=== PATIENT | female | born 1940 | race Caucasian/White ===

== ENCOUNTER 2020-07-22 16:48 | Inpatient (IN) | payer MEDICARE ==
[~2020-07-22] VITALS: Ht 152.4 cm; Wt 48.1 kg
--- NOTE | 2020-07-22 16:59 | NUR ---
Pt brought in via rescue for Psych eval. MD Castillo at bedside assessing pt. VSS stable
[2020-07-22] MEDS ORDERED: ESCI10TA PO (17:09)
[2020-07-22] MEDS ORDERED: QUET25TA PO (17:09)
[2020-07-22 20:00] VITALS: BP 187/80
[2020-07-22] MEDS ORDERED: TEMAZEPAM 7.5 MG CAPSULE PO PRN ×2 (20:00→23:15)
[2020-07-22] MEDS ORDERED: MAG HYDROX/AL HYDROX/SIMETH 30 ML LIQUID UDC PO PRN ×2 (20:00→23:15)
[2020-07-22] MEDS ORDERED: MAGNESIUM HYDROXIDE 30 ML LIQUID UDC PO PRN ×2 (20:00→23:15)
[2020-07-22] MEDS ORDERED: BLOOD SUGAR DIAGNOSTIC 1 EACH STRIP VI ONE ×2 (20:00→21:00)
[2020-07-22] MEDS ORDERED: ACETAMINOPHEN 325 MG TABLET PO PRN ×2 (20:00→23:15)
[2020-07-22] MEDS ORDERED: LORAZEPAM 0.5 MG TABLET PO PRN (20:00)
[2020-07-22 22:45] VITALS: BP 130/72
[2020-07-22] MEDS ORDERED: LORAZEPAM 1 MG TABLET PO PRN (23:15)
--- NOTE | 2020-07-22 23:58 | NUR ---
PATIENT UP IN CHAIR. PATIENT IS ALERT/ORIENTED TO NAME. PATIEN IS CONFUSED, FLAT AFFECT ANXIOUS, GUARDED, SUSPICIOUS, AND UNCOOPERATIVE. PATIENT WAS LIMITED WITH CONVERSATION. PATIENT DENIES SI AND DENIES HAVING A PLAN.PATIENT REFUSED TO SIGN ADMISSION FORMS. PATIENT WAS CHANGED INTO HOSPITAL GOWN. PATIENT WAS ORIENTED TO ROOM. SAFE ENVIRONMENT PROVIDE, FREQUENT ROUNDING, AND CLUTTER FREE ENVIRONMENT. BED IN LOWEST POSITION, BED LOCKED, AND BED ALARM ON WHILE IN BED. Q15 MIN ROUNDING. PATIENT REFUSED INFLUENZA VACCINE AND PNEUMOCOCCAL. NO AGGRESSIVE OR COMBATIVE BEHAVIOR NOTED. Addendum: 07/23/20 at 0651 by ANUP CAMPA RN skin left lower leg with laceration and sutures, left and right wrist with laceration pictures rendered. Patient denies SI and denies a plan. Patient received admission packet with advisement.
[2020-07-23 07:30] VITALS: BP 159/80
--- NOTE | 2020-07-23 10:58 | NUR ---
DPOA Contact: OSMEL called the pts DPOA, Gaby Gaffney ([phone]), and left a voicemail stating that the SW would like to speak to her regarding the pts treatment plan.
--- NOTE | 2020-07-23 10:59 | NUR ---
Family Contact: Pts DPOA, Gaby Gaffney ([phone]), called the SW and stated that the pts son, Lee ([phone]), was also on the line. DPOA stated that she only has the ability to make decisions regarding the pts finances but that the pt signed an Advanced Directive and listed the pts son on there. ENZO asked that the SW mainly contact the pts son. OSMEL then went on to discuss the pts discharge plan and was informed that the pt currently resides at [facility] and that the pt will be welcomed back. OSMEL stated that she would also call them to confirm the pt can return. OSMEL stated that she would the pts son updated regarding pts treatment. Addendum: 07/24/20 at 1117 by OSMEL BATRES Pts son is named Live
--- NOTE | 2020-07-23 11:07 | NUR ---
Facility Contact: OSMEL called [facility] ([phone]) and spoke to the front edger who stated that the Animal Care Supervisor, Lee Goodrich, was not at work today and the best alternative person to speak to is Michelle but she was in a meeting. OSMEL stated that she will call back at a later time.
--- NOTE | 2020-07-23 11:12 | NUR ---
called and spoke with Frank hodgson [facility] regarding patients home medication, will follow up for the information
--- NOTE | 2020-07-23 12:29 | NUR ---
Facility Contact: Michelle from [facility] ([phone]) called the SW back and stated that the pt can return to their facility once the SW can send an MD note clearing the pt of having suicidal ideation and not being a harm to herself. SW stated that she would send an MD progress note closer to the pts discharge date.
--- NOTE | 2020-07-23 12:29 | NUR ---
Initial Discharge Plan: Pt currently resides at [facility] located at [address] [place] [address]; ([phone]). Per pt, she would like to return to her home but per pts DPOA, Gaby ([phone]), and pts son, Lee ([phone]), who is listed on the Advanced Directive, pt will return to the Assisted Living and Memory Care. SW will work with the pt, pts DPOA, pts son, and pts MD regarding appropriate discharge planning. SW will form a safe and proper discharge.
--- NOTE | 2020-07-23 12:52 | NUR ---
Firearms Report: Negative Cleaner completed and submitted a [employer] firearms report for 5150 danger to self certification. A copy of report has been placed in patient chart.
[2020-07-23] MEDS ORDERED: ATEN50TA PO (13:11)
[2020-07-23] MEDS ORDERED: VIT1CAPS9 PO (13:11)
[2020-07-23] MEDS ORDERED: TIMO1DRO OP (13:11)
[2020-07-23] MEDS ORDERED: ASPI81TA31 PO (13:11)
[2020-07-23] MEDS ORDERED: LOSA100T31 PO (13:11)
[2020-07-23] MEDS ORDERED: MULT-594 PO (13:11)
[2020-07-23] MEDS ORDERED: ATOR10TA PO (13:11)
[2020-07-23] MEDS ORDERED: DONE10TA44 PO (13:11)
[2020-07-23] MEDS ORDERED: POTA-10 PO (13:11)
[2020-07-23] MEDS ORDERED: EZET10TA15 PO (13:11)
[2020-07-23] MEDS ORDERED: VITA-85A (13:11)
[2020-07-23] MEDS ORDERED: TIMO5DRO35 OP (13:11)
[2020-07-23] MEDS ORDERED: BIMA2.5D5 EACHEYE (13:11)
--- NOTE | 2020-07-23 14:00 | NUR ---
received patients home medication list record from Danielle Guerra, updated patient record, aware
[2020-07-23 16:00] VITALS: BP 109/92
[2020-07-23 20:00] VITALS: BP 167/73
[2020-07-23] MEDS: MIRTAZAPINE 15 MG TABLET PO SCH (20:18)
[2020-07-23 21:04] VITALS: BP 148/54
[2020-07-24 07:30] VITALS: BP 166/96
--- NOTE | 2020-07-24 07:40 | NUR ---
received patient in her room, patient AOx2-3, patient quiet in her room, encourage to stay in the dining room for breakfast, patient compliant with medications, on Suicidal precaution, patient minimizes her symptoms , patient monitored [id number], no sign of any distress at this time
--- NOTE | 2020-07-24 11:17 | NUR ---
Family Contact: SW called the pts son, Live ([phone]), and left a voicemail providing him with updates regarding the pts treatment.
--- NOTE | 2020-07-24 11:27 | NUR ---
Family Contact: Pts DPOA, Gaby Gaffney ([phone]) and pts son, Live ([phone]), called the SW in return to the voicemail that was left and asked for more detail. SW went over the pts current medications and the pts current behaviors. SW also informed them that the pt meets with a psychiatrist daily.
[2020-07-24] MEDS: LOSARTAN POTASSIUM 50 MG TABLET PO SCH (13:18)
[2020-07-24] MEDS: ASPIRIN 81 MG TAB.CHEW PO SCH (13:18)
[2020-07-24] MEDS: EZETIMIBE 10 MG TABLET PO SCH (13:19)
[2020-07-24] MEDS: ATENOLOL 50 MG TABLET PO SCH (13:20)
[2020-07-24 16:00] VITALS: BP 146/66
[2020-07-24] MEDS: LATANOPROST OPHT DROP 2.5 ML BOTTLE EACHEYE SCH (17:04)
[2020-07-24] MEDS: ATORVASTATIN 10 MG TABLET PO SCH (17:05)
--- NOTE | 2020-07-24 17:46 | NUR ---
patient remain isolative and withdrawn throughout the day, patient compliant with medications , easily irritable, patient poor appetite, patient minimizes her symptoms, monitored q15 minutes for safety, denies SI and HI, denies AV/HV assisted with ADLS , no sign of distress
[2020-07-24 20:00] VITALS: BP 145/64
[2020-07-24] MEDS: MIRTAZAPINE 15 MG TABLET PO SCH (20:15)
--- NOTE | 2020-07-25 05:55 | NUR ---
GPS: Remain calm and cooperative with care.no agitation noted.slept 8.45 hrs through the night. resting in bed comfortably.
--- NOTE | 2020-07-25 07:30 | NUR ---
Received patient AOx3-4, patient calm inher room, compliant with medication, this morning patient refused VS and lab drawn, patient Denies SI and HI, Minimizes her symptoms, patient isolative , and withdrawn, on monitoring for safety
[2020-07-25 08:30] VITALS: BP_SYST 141; BP_SYST 147; BP_DIAS 50; BP_DIAS 54
[2020-07-25] MEDS: ASPIRIN 81 MG TAB.CHEW PO SCH (08:40)
[2020-07-25] MEDS: POTASSIUM CHLORIDE 10 MEQ TAB.PRT.SR PO SCH (08:41)
[2020-07-25] MEDS: MULTIVITAMINS,THERAPEUTIC TABLET PO SCH (08:41)
[2020-07-25] MEDS: LOSARTAN POTASSIUM 50 MG TABLET PO SCH (08:49)
[2020-07-25] MEDS: ATENOLOL 50 MG TABLET PO SCH (09:00)
[2020-07-25] MEDS: EZETIMIBE 10 MG TABLET PO SCH (09:00)
[2020-07-25 16:13] VITALS: BP 147/54
[2020-07-25] MEDS: ATORVASTATIN 10 MG TABLET PO SCH (17:04)
[2020-07-25] MEDS: LATANOPROST OPHT DROP 2.5 ML BOTTLE EACHEYE SCH (17:04)
--- NOTE | 2020-07-25 18:00 | NUR ---
patient remains to be quiet, patient seen walking hallway and sometimes got lost track of time , patient verbalizes "when is breakfast ?" , reorient patient to time, and explained that she already had breakfast and lunch and at this time we are waiting for dinner, patient reoriented to time and place, patient easily irritable and needed education and after explaining the situation deven address her concern patient calm down , moniotred [id number] for safety , no sign of any distress at this time
[2020-07-25 20:42] VITALS: BP 138/56
[2020-07-25] MEDS: MIRTAZAPINE 15 MG TABLET PO SCH (20:45)
--- NOTE | 2020-07-26 06:09 | NUR ---
GPS:Remain calm and cooperative irritable, monitored q15 minutes for safety, Denies SI and HI, assisted with ADLS , no sign of distress . Resting in bed comfortably. slept 7.45 hrs through the night.
[2020-07-26 07:30] VITALS: BP 161/63
[2020-07-26] MEDS: ASPIRIN 81 MG TAB.CHEW PO SCH (08:14)
[2020-07-26] MEDS: MULTIVITAMINS,THERAPEUTIC TABLET PO SCH (08:14)
[2020-07-26] MEDS: LOSARTAN POTASSIUM 50 MG TABLET PO SCH (08:14)
[2020-07-26] MEDS: POTASSIUM CHLORIDE 10 MEQ TAB.PRT.SR PO SCH (08:14)
[2020-07-26] MEDS: EZETIMIBE 10 MG TABLET PO SCH (08:17)
[2020-07-26] MEDS: ATENOLOL 50 MG TABLET PO SCH (08:47)
[2020-07-26] MEDS ORDERED: CLONIDINE HCL 0.1 MG TABLET PO PRN (11:00)
[2020-07-26 15:44] VITALS: BP 121/50
[2020-07-26] MEDS: ATORVASTATIN 10 MG TABLET PO SCH (17:06)
[2020-07-26] MEDS: LATANOPROST OPHT DROP 2.5 ML BOTTLE EACHEYE SCH (17:06)
[2020-07-26 20:00] VITALS: BP 145/62
[2020-07-26] MEDS: MIRTAZAPINE 15 MG TABLET PO SCH (20:14)
[2020-07-27 07:56] VITALS: BP 143/71
[2020-07-27] MEDS: ATENOLOL 50 MG TABLET PO SCH (08:00)
[2020-07-27] MEDS: ASPIRIN 81 MG TAB.CHEW PO SCH (08:00)
[2020-07-27] MEDS: POTASSIUM CHLORIDE 10 MEQ TAB.PRT.SR PO SCH (08:00)
[2020-07-27] MEDS: LOSARTAN POTASSIUM 50 MG TABLET PO SCH (08:00)
[2020-07-27] MEDS: MULTIVITAMINS,THERAPEUTIC TABLET PO SCH (08:00)
[2020-07-27] MEDS: EZETIMIBE 10 MG TABLET PO SCH (08:01)
[2020-07-27 15:16] VITALS: BP 112/43
[2020-07-27] MEDS: LATANOPROST OPHT DROP 2.5 ML BOTTLE EACHEYE SCH (17:00)
[2020-07-27] MEDS: ATORVASTATIN 10 MG TABLET PO SCH (17:00)
[2020-07-27] MEDS: MIRTAZAPINE 15 MG TABLET PO SCH (20:31)
--- NOTE | 2020-07-27 22:00 | NUR ---
PATIENT REFUSED REMERON 15MG QHS. MULTIPLE REDIRECTION GIVEN; HOWEVER, INEFFECTIVE. SHE WAS EXPLAINED THE IMPORTANCE OF MEDICATION COMPLIANT AND THE CONSEQUENCES OF NOT TALKING MEDICATION/ WILL CONTINUE TO MONITOR.
--- NOTE | 2020-07-28 07:00 | NUR ---
PATIENT SLEPT FOR APPROX 8.30HRS THROUGH THE NIGHT. SHE REFUSED BLOOD DRAWN THIS MORNING, LACERATION TO BOTH WRISTS AND LEFT LOWER LEG NOTED DRY AND INTACT. WILL CONTINUE TO MONITOR.
[2020-07-28 07:30] VITALS: BP 128/68
[2020-07-28] MEDS: ASPIRIN 81 MG TAB.CHEW PO SCH (08:23)
[2020-07-28] MEDS: MULTIVITAMINS,THERAPEUTIC TABLET PO SCH (08:24)
[2020-07-28] MEDS: LOSARTAN POTASSIUM 50 MG TABLET PO SCH (08:24)
[2020-07-28] MEDS: EZETIMIBE 10 MG TABLET PO SCH (08:26)
[2020-07-28] MEDS: ATENOLOL 50 MG TABLET PO SCH (08:26)
[2020-07-28] MEDS: POTASSIUM CHLORIDE 10 MEQ TAB.PRT.SR PO SCH (08:32)
--- NOTE | 2020-07-28 09:00 | NUR ---
RECEIVED PATIENT IN ROOM AWAKE ALERT AND AWARE COMPLIANT WITH MEDICATIONS AND CARE LEFT LEG LACERATIONS WITH STITCHES INTACT NO DRAINAGE AT THIS TIME. PATIENT ENCOURAGED TO GO AND PARTICIPATE IN ACTIVITIES AND SHE EXPRESSED UNDERSTANDING.
--- NOTE | 2020-07-28 11:05 | NUR ---
WOUND CARE CONSULT: PT PRESENTS WITH DRY SCRATCHES, SCABS ON ARMS AND SUTURED LACERATION TO LEFT LOWER LEG, PRESENT ON ADMISSION. RECOMMEND DPM CONSULT. DR FERRO NOTIFIED OF CONSULT REQUEST. PT IS AMBULATORY AND CONTINENT. MD IN AGREEMENT WITH PLAN OF CARE.
--- NOTE | 2020-07-28 12:38 | NUR ---
Family Contact: Pts DPOA, Gaby Gaffney ([phone]) and pts son, Live ([phone]), called this social services coordinator to discuss treatment plan and current medications.
--- NOTE | 2020-07-28 14:33 | NUR ---
DR VASQUEZ HERE TO SEE PATIENT SEEN HER LEFT LEG WITH ORDER TO LEAVE OPEN TO AIR AND THAT SHE WILL BE BACK ABOUT MON OR MONDAY TO REEVALUATE THE STITCHES.
[2020-07-28 15:39] VITALS: BP 125/44
[2020-07-28] MEDS: LATANOPROST OPHT DROP 2.5 ML BOTTLE EACHEYE SCH (17:18)
[2020-07-28] MEDS: ATORVASTATIN 10 MG TABLET PO SCH (17:18)
[2020-07-28 20:00] VITALS: BP 133/63
[2020-07-28] MEDS: MIRTAZAPINE 15 MG TABLET PO SCH (20:05)
[2020-07-29 07:30] VITALS: BP 132/67
--- NOTE | 2020-07-29 08:14 | NUR ---
OSMEL Facility Contact: OSMEL received a call from CANDACE from [facility] ([phone]) requesting information regarding treatment and discharge plan. OSMEL called to inform and left a voicemail at this time.
[2020-07-29] MEDS: ASPIRIN 81 MG TAB.CHEW PO SCH (09:03)
[2020-07-29] MEDS: POTASSIUM CHLORIDE 10 MEQ TAB.PRT.SR PO SCH (09:06)
[2020-07-29] MEDS: LOSARTAN POTASSIUM 50 MG TABLET PO SCH (09:06)
[2020-07-29] MEDS: MULTIVITAMINS,THERAPEUTIC TABLET PO SCH (09:06)
[2020-07-29] MEDS: EZETIMIBE 10 MG TABLET PO SCH (09:09)
[2020-07-29] MEDS: ATENOLOL 50 MG TABLET PO SCH (09:26)
--- NOTE | 2020-07-29 10:52 | NUR ---
PC Hearing: PC hearing was held today and it was upheld for danger to self and gravely disabled.
--- NOTE | 2020-07-29 15:08 | NUR ---
Facility Contact: OSMEL coordinated a video conference with CANDACE and Michelle from [facility] ([phone]) to evaluate the patient before her discharge back to the facility. Addendum: 07/29/20 at 1528 by EMI BAJWA OSMEL also informed CANDACE of the patient's aftercare appointment with her doctor.
--- NOTE | 2020-07-29 15:09 | NUR ---
Family Contact: SW spoke with pts son, Live ([phone]) regarding discharge for tomorrow and Live is agreeable with the discharge and [employer] transportation.
--- NOTE | 2020-07-29 15:18 | NUR ---
OSMEL Coordination of Care: SW arranged [employer] transportation spoke with Mayank ([phone]) and it is arranged for the patient to be picked up at 1:30PM tomorrow. patient's son Live will be taking care of the payment.
[2020-07-29 16:04] VITALS: BP 125/62
[2020-07-29] MEDS: ATORVASTATIN 10 MG TABLET PO SCH (18:08)
[2020-07-29] MEDS: LATANOPROST OPHT DROP 2.5 ML BOTTLE EACHEYE SCH (18:08)
[2020-07-29 19:49] VITALS: BP 105/51
[2020-07-29] MEDS: MIRTAZAPINE 15 MG TABLET PO SCH (20:00)
--- NOTE | 2020-07-29 20:00 | NUR ---
LACERATION LEFT LOWER LEG WITH THREE SUTURES AND LACERATION ON BOTH WRISTS WERE REASSESSED. NO DRAINAGE, NO SWELLING, NO REDNESS NO S/S OF INFECTION NOTED AT THIS TIME. PATIENT DENIES PAIN OR DISCOMFORT. WILL REASSESSES BEFORE PATIENT'S DISCHARGED FOR THE NEED TO REMOVE SUTURE IN LEFT LOWER LEG. WILL CONTINUE TO MONITOR.
--- NOTE | 2020-07-30 04:06 | NUR ---
PATIENT CAME OUT OF HER ROOM AND APPROACHED THE NURSING STATION, SHE ASKED FOR THE TIME, THEN SHE STATED, "I DON'T KNOW WHERE MY ROOM IS BUT I WILL FIND IT". PT WAS HELPED BACK TO HER ROOM, SHE IS NOW BACK IN HER BED. WILL CONTINUE TO MONITOR.
--- NOTE | 2020-07-30 07:10 | NUR ---
patient slept for approx. 6.15hrs through the night. will continue to monitor.
--- NOTE | 2020-07-30 08:05 | NUR ---
DISCHARGE NOTE: [facility] located at [address] [place] [id number] ([phone]). Patient is provided [employer] transportation spoke with Mayank ([phone]) and it is arranged for the patient to be picked up at 1:30PM. Michelle and CANDACE from [facility] ([phone]) confirmed that the patient is welcome back. Patients ENZO Griffin ([phone]) and patients sonLive ([phone]) are both made aware and are agreeable with discharge plan. Patient is alert and oriented times 4 and is aware and agreeable with discharge plan. Patient presents with euthymic mood and congruent affect. Patient denies suicidal or homicidal ideation. Patient will be following up with her primary physician Dr. Wilks [address] [place] [address] [address] ([phone]) and has an appointment scheduled on 08/05/20 at 11AM via telemedicine. OSMEL spoke with Sheila and requested for physician to refer patient for an outpatient psychiatrist and will monitor the psychotropic medications.
[2020-07-30] MEDS: ASPIRIN 81 MG TAB.CHEW PO SCH (08:20)
[2020-07-30] MEDS: POTASSIUM CHLORIDE 10 MEQ TAB.PRT.SR PO SCH (08:20)
[2020-07-30] MEDS: LOSARTAN POTASSIUM 50 MG TABLET PO SCH (08:20)
[2020-07-30] MEDS: MULTIVITAMINS,THERAPEUTIC TABLET PO SCH (08:20)
[2020-07-30] MEDS: EZETIMIBE 10 MG TABLET PO SCH (08:22)
[2020-07-30] MEDS: ATENOLOL 50 MG TABLET PO SCH (08:23)
[2020-07-30 11:02] VITALS: BP 140/45
--- NOTE | 2020-07-30 15:05 | NUR ---
Patient is being picked up by staff from her Assisted Living, [place]. Pt is aware and willing to go. VS are stable. Discharge instructions are given. All belongings returned.
== END 2020-07-30 15:20 | DRG 881 ==
LOC: ER 16:48 → GPS 18:31
PROVIDERS: ADMIT Psychiatry & Neurology Psychiatry; ATTEND Nurse Practitioner Acute Care
DX: F32.9 Major depressive disorder, single episode, unspecified (principal); E78.5 Hyperlipidemia, unspecified; H40.9 Unspecified glaucoma; F29 Unspecified psychosis not due to a substance or known physiological condition; I10 Essential (primary) hypertension; S51.812D Laceration without foreign body of left forearm, subsequent encounter; S81.812D Laceration without foreign body, left lower leg, subsequent encounter; X78.9XXD Intentional self-harm by unspecified sharp object, subsequent encounter; M20.41 Other hammer toe(s) (acquired), right foot; M20.42 Other hammer toe(s) (acquired), left foot; Z20.822 Contact with and (suspected) exposure to COVID-19
CPT/HCPCS: 71045; A4663

== ENCOUNTER 2020-09-24 18:06 | Inpatient (IN) | payer MEDICARE, BC ==
[~2020-09-24] VITALS: Ht 152.4 cm; Wt 51.3 kg
[~2020-09-24 18:06] MED LIST: ASPI81TA31 PO; ATEN50TA PO; ATOR10TA PO; BIMA2.5D5 EACHEYE; EZET10TA15 PO; LOSA100T31 PO; MULT-594 PO; POTA-10 PO; TIMO1DRO OP; TIMO5DRO18 OP; VIT1CAPS9 PO; VITA-85A
--- NOTE | 2020-09-24 18:33 | NUR ---
Pt is medically cleared by DR Chandler, PET called, Negar RN will be here in 1 hour for psych eval.
[2020-09-24] MEDS ORDERED: ESCI10TA PO (18:41)
[2020-09-24] MEDS ORDERED: QUET25TA PO (18:41)
[2020-09-24] MEDS ORDERED: DONE10TA44 PO (18:41)
[2020-09-24] MEDS ORDERED: MIRT15TA7 PO (18:41)
--- NOTE | 2020-09-24 19:10 | NUR ---
ASSISSTED PT TO THE BATHROOM, UNSTEADY GAIT, FALL RISK, GUIDED THE PT BACK TO THE BED, COMFORT MEASURES PROVIDED.
--- NOTE | 2020-09-24 19:30 | NUR ---
pt came out of the bed, walking around in the room. assisstd pt back to bed.
--- NOTE | 2020-09-24 20:00 | NUR ---
TERE JORGE PLACED THE PT ON 5150 HOLD FOR GD/DTO.
--- NOTE | 2020-09-24 20:48 | NUR ---
JOSLYN AUSTIN TALKED TO DR. ROY REGARDING PT BP/HR. CLEARED FOR PSYCH ADMIT.
--- NOTE | 2020-09-24 21:51 | NUR ---
ER CALLED DR. ROY REGARDING PT HR/BP, PT WILL ADMITTED TO TELE INSTEAD OF MHU.
[2020-09-24 21:56] LABS: BASOPHILS % (AUTO) 1.1 % (0.0-2.0); EOSINOPHILS % (AUTO) 7.4 % (0.0-7.0); HEMATOCRIT 40.6 % (31.2-41.9); HEMOGLOBIN 13.4 g/dL (10.9-14.3); LYMPHOCYTES % (AUTO) 28.5 % (20.5-51.5); MEAN CORPUSCULAR HEMOGLOBIN 31.6 uug (24.7-32.8); MEAN CORPUSCULAR HGB CONC 33 g/dL (32.3-35.6); MEAN CORPUSCULAR VOLUME 95.9 fL (75.5-95.3); MONOCYTES % (AUTO) 12.1 % (0.0-11.0); NEUTROPHILS % (AUTO) 50.9 % (38.5-71.5); PLATELET COUNT (AUTO) 194 K/uL (179-408); RED BLOOD CELL COUNT(AUTO) 4.24 MIL/uL (3.63-4.92); WHITE BLOOD COUNT (AUTO) 6.8 K/uL (3.8-11.8)
[2020-09-24 21:57] LABS: BASOPHILS # (AUTO) 0.1 K/uL (0.0-8.0); EOSINOPHILS # (AUTO) 0.5 K/uL (0.0-0.7); LYMPHOCYTES # (AUTO) 1.9 K/uL (20.0-40.0); MONOCYTES # (AUTO) 0.8 K/uL (2.0-10.0); NEUTROPHILS # (AUTO) 3.5 K/uL (1.8-8.9)
--- NOTE | 2020-09-24 22:00 | NUR ---
PT RESTING, NO SIGN OF DISTRESS AT THIS TIME.
[2020-09-24 22:10] LABS: BILIRUBIN,TOTAL 0.6 mg/dL (0.2-1.0); TOTAL PROTEIN, SERUM 7.4 g/dL (6.4-8.2)
[2020-09-24] MEDS ORDERED: hydrALAZINE HCL 25 MG TABLET PO SCH (22:15)
[2020-09-24] MEDS: AMLODIPINE 5 MG TABLET PO SCH (22:23)
[2020-09-24] MEDS ORDERED: AMLODIPINE 5 MG TABLET ONE (22:25)
[2020-09-24] MEDS ORDERED: hydrALAZINE HCL 25 MG TABLET ONE (22:25)
--- NOTE | 2020-09-24 22:40 | NUR ---
TRANSFERED PT TO [facility] IN[facility].
--- NOTE | 2020-09-24 22:45 | NUR ---
Admitted an 80 y/o female to telemetry with diagnosis of HTN, bradycardia and psychosis. Pt transferred to bed, admission care rendered, safety measures initiated, call light within reach. Pt is sinus bradycardia on tele at 49/min, shows no s/s of respiratory distress, denies any pain, denies suicidal ideation. Belongings listed on belongings form. Pt on 5150 hold with 1:1 sitter at bedside. IV access on L AC intact and patent. will continue to monitor.
[2020-09-24 22:55] VITALS: BP 164/64
[2020-09-24 23:20] VITALS: BP 134/56
[2020-09-24] MEDS ORDERED: ONDANSETRON 4 MG/2 ML VIAL IV PRN (23:30)
[2020-09-24] MEDS ORDERED: hydrALAZINE HCL 25 MG TABLET PO PRN (23:30)
[2020-09-24] MEDS ORDERED: ENALAPRILAT DIHYDRATE 1.25 MG/1 ML VIAL IV PRN (23:30)
[2020-09-24] MEDS ORDERED: ACETAMINOPHEN 325 MG TABLET PO PRN (23:30)
[2020-09-24] MEDS: MIRTAZAPINE 15 MG TABLET PO SCH (23:30)
[2020-09-24] MEDS ORDERED: HYDROCODONE/APAP 5-325MG TABLET PO PRN (23:30)
[2020-09-24] MEDS ORDERED: LORAZEPAM 2 MG/1 ML VIAL IV PRN (23:30)
[2020-09-25] VITALS: BP 114/52
[2020-09-25] MEDS: ENOXAPARIN SODIUM 40 MG/0.4 ML DISP.SYRIN SQ SCH ×2 (00:28→20:25)
[2020-09-25 01:41] VITALS: BP 173/77
[2020-09-25 04:00] VITALS: BP 133/54
--- NOTE | 2020-09-25 05:33 | NUR ---
Pt laying in bed, calm and verbally responsive, no s/s of distress, denies pain, sinus bradycardia on tele at 54/min. IV access on L AC intact and patent. Sitter at bedside. Safety measures in place. All needs attended.
[2020-09-25] MEDS: PANTOPRAZOLE SODIUM 40 MG TABLET.DR PO SCH (06:24)
--- NOTE | 2020-09-25 06:24 | NUR ---
Assisted pt to the bathroom, she was calm and conversant at first. When putting her back to bed, she began withdrawing her hands, voice raising and refusing care. Reorientation done, redirected her attention but still refuses care. Pt also refused her protonix medication. will endorse to receiving nurse.
[2020-09-25 06:35] LABS: BASOPHILS # (AUTO) 0.1 K/uL (0.0-8.0); BASOPHILS % (AUTO) 0.9 % (0.0-2.0); EOSINOPHILS # (AUTO) 0.2 K/uL (0.0-0.7); HEMATOCRIT 39.1 % (31.2-41.9); HEMOGLOBIN 12.9 g/dL (10.9-14.3); LYMPHOCYTES # (AUTO) 1.2 K/uL (20.0-40.0); LYMPHOCYTES % (AUTO) 17.8 % (20.5-51.5); MEAN CORPUSCULAR HEMOGLOBIN 31.7 uug (24.7-32.8); MEAN CORPUSCULAR HGB CONC 33 g/dL (32.3-35.6); MEAN CORPUSCULAR VOLUME 95.8 fL (75.5-95.3); MONOCYTES # (AUTO) 0.5 K/uL (2.0-10.0); MONOCYTES % (AUTO) 7.9 % (0.0-11.0); NEUTROPHILS # (AUTO) 4.9 K/uL (1.8-8.9); NEUTROPHILS % (AUTO) 70.4 % (38.5-71.5); PLATELET COUNT (AUTO) 182 K/uL (179-408); RED BLOOD CELL COUNT(AUTO) 4.08 MIL/uL (3.63-4.92); WHITE BLOOD COUNT (AUTO) 6.9 K/uL (3.8-11.8)
[2020-09-25 06:58] LABS: THYROID STIMULATING HORMONE 1.453 mIU/mL (0.358-3.740)
[2020-09-25 07:15] LABS: BILIRUBIN,TOTAL 0.9 mg/dL (0.2-1.0); CREATININE 0.9 mg/dL (0.6-1.3); PHOSPHOROUS 3.6 mg/dL (2.5-4.9); TOTAL PROTEIN, SERUM 6.9 g/dL (6.4-8.2)
[2020-09-25 07:37] VITALS: BP 143/66
[2020-09-25] MEDS: QUETIAPINE FUMARATE 25 MG TABLET PO SCH (08:21)
[2020-09-25] MEDS: AMLODIPINE 5 MG TABLET PO SCH ×3 (08:21→20:27)
[2020-09-25] MEDS: MULTIVITAMINS,THERAPEUTIC TABLET PO SCH (08:21)
[2020-09-25] MEDS: LOSARTAN POTASSIUM 50 MG TABLET PO SCH (08:22)
--- NOTE | 2020-09-25 08:32 | NUR ---
RECEIVED PATIENT, PLEASANT AT FIRST. MID-CONVERSATION, PATIENT BECAME VERBALLY AGGRESSIVE, STATING " WHAT DO YOU WANT? JUST LEAVE ME BE." REFUSED MEDICATION AT FIRST, BUT DECIDED TO TAKE THEM WHEN OFFERED AGAIN. 1:1 SITTER AT BEDSIDE FOR SAFETY. SAFETY PRECAUTIONS IN PLACE. WILL CONTINUE TO MONITOR. Addendum: 09/25/20 at 0922 by JAYDEN DUMONT RN DROPPED THREE PILLS FROM HER MORNING MEDS ON THE FLOOR, STATING "WHAT ARE THESE? I DON'T NEED THEM." ASKED PATIENT IF SHE STILL WANTS TO TAKE THEM IF I TAKE REPLACEMENT MEDICATIONS FROM THE SUPPLY ROOM, STATES " WELL, OF COURSE. WHY ARE YOU ASKING?" SAFETY PRECAUTIONS IN PLACE. WILL CONTINUE TO MONITOR.
[2020-09-25] MEDS ORDERED: DONEPEZIL 10 MG TABLET PO SCH (09:00)
[2020-09-25] MEDS ORDERED: ESCITALOPRAM OXALATE 10 MG TABLET PO SCH (09:00)
--- NOTE | 2020-09-25 09:22 | NUR ---
PATIENT PULLED HER IV AFTER PT EVAL. NO S/S OF BLEEDING AT THIS TIME.
[2020-09-25] MEDS: TIMOLOL MALEATE 0.5% OPHT DROP 5 ML BOTTLE OP SCH (15:30)
[2020-09-25 16:35] VITALS: BP 136/66
[2020-09-25 19:27] VITALS: BP 107/51
[2020-09-25] MEDS: RIVASTIGMINE TARTRATE 1.5 MG CAPSULE PO SCH (20:15)
[2020-09-25] MEDS: ATORVASTATIN 10 MG TABLET PO SCH (20:15)
[2020-09-25] MEDS: DIVALPROEX 250 MG TABLET.DR PO SCH (20:15)
[2020-09-25] MEDS: risperiDONE 0.5 MG TABLET PO SCH (20:15)
[2020-09-25] MEDS: MIRTAZAPINE 15 MG TABLET PO SCH (20:16)
--- NOTE | 2020-09-25 20:18 | NUR ---
Patient in bed awake calm and pleasant.Interacts when engaged. No s/s of distress noted.Denies pain.Compliant with medications.1:1 sitter at bedside for safety.Will continue to monitor.
[2020-09-25] MEDS: LATANOPROST OPHT DROP 2.5 ML BOTTLE EACHEYE SCH (20:26)
[2020-09-26 00:30] VITALS: BP 115/55
[2020-09-26 04:36] VITALS: BP_SYST 144; BP_SYST 152; BP_DIAS 60; BP_DIAS 70
[2020-09-26] MEDS: PANTOPRAZOLE SODIUM 40 MG TABLET.DR PO SCH (06:14)
--- NOTE | 2020-09-26 06:29 | NUR ---
Patient slept intermittently through out the night.No acute distress noted .1:1 sitter remain at bedside.No behavioral issues.Patient calm .Refused protonix med this A.M .Explained risk and benefits 3x .PAtient still refused.Will endorse to oncoming shift.
[2020-09-26 07:09] VITALS: BP 132/61
[2020-09-26 07:13] LABS: BASOPHILS # (AUTO) 0.1 K/uL (0.0-8.0); BASOPHILS % (AUTO) 0.8 % (0.0-2.0); EOSINOPHILS # (AUTO) 0.5 K/uL (0.0-0.7); EOSINOPHILS % (AUTO) 7.4 % (0.0-7.0); HEMATOCRIT 35.9 % (31.2-41.9); LYMPHOCYTES # (AUTO) 2.4 K/uL (20.0-40.0); LYMPHOCYTES % (AUTO) 35.9 % (20.5-51.5); MEAN CORPUSCULAR HEMOGLOBIN 31.9 uug (24.7-32.8); MEAN CORPUSCULAR HGB CONC 34 g/dL (32.3-35.6); MEAN CORPUSCULAR VOLUME 95.2 fL (75.5-95.3); MONOCYTES # (AUTO) 0.9 K/uL (2.0-10.0); MONOCYTES % (AUTO) 13.2 % (0.0-11.0); NEUTROPHILS # (AUTO) 2.8 K/uL (1.8-8.9); NEUTROPHILS % (AUTO) 42.7 % (38.5-71.5); PLATELET COUNT (AUTO) 184 K/uL (179-408); RED BLOOD CELL COUNT(AUTO) 3.77 MIL/uL (3.63-4.92); WHITE BLOOD COUNT (AUTO) 6.6 K/uL (3.8-11.8)
[2020-09-26 07:28] LABS: CARBON DIOXIDE 28 mmol/L (21-32); CHLORIDE 103 mmol/L (98-107); CREATININE 1.4 mg/dL (0.6-1.3); GLUCOSE 85 mg/dL (74-106); MAGNESIUM 2.1 mg/dL (1.8-2.4); POTASSIUM 4.1 mmol/L (3.5-5.1); UREA NITROGEN, BLOOD 29 mg/dL (7-18)
[2020-09-26] MEDS: TIMOLOL MALEATE 0.5% OPHT DROP 5 ML BOTTLE OP SCH (08:23)
[2020-09-26] MEDS: AMLODIPINE 5 MG TABLET PO SCH ×2 (08:23→20:40)
[2020-09-26] MEDS: DIVALPROEX 250 MG TABLET.DR PO SCH ×2 (08:23→20:39)
[2020-09-26] MEDS: RIVASTIGMINE TARTRATE 1.5 MG CAPSULE PO SCH ×2 (08:23→20:39)
[2020-09-26] MEDS: risperiDONE 0.5 MG TABLET PO SCH ×2 (08:23→20:39)
[2020-09-26] MEDS: QUETIAPINE FUMARATE 25 MG TABLET PO SCH (08:24)
[2020-09-26] MEDS: LOSARTAN POTASSIUM 50 MG TABLET PO SCH (08:24)
[2020-09-26] MEDS: MULTIVITAMINS,THERAPEUTIC TABLET PO SCH (08:24)
[2020-09-26] MEDS ORDERED: TIMOLOL MALEATE XE 0.5% OPHT 5 ML BOTTLE OP SCH (08:55)
--- NOTE | 2020-09-26 09:03 | NUR ---
DAILY MEDICATIONS GIVEN. TIMILOL EYE DROPS GIVEN WITH PREVIOUS ORDER THAT WAS DISCONTINUED. NON-ADMIN TO PREVENT DUPLICATE ADMINISTRATION.
[2020-09-26] MEDS ORDERED: IV 1/2NS 1000 ML 1,000 ML IV ONE (09:30)
--- NOTE | 2020-09-26 12:39 | NUR ---
RESTARTED IV ON LEFT HAND 22G - FLUSHING AND PATENT. IV FLUIDS INFUSING ORDERED. 1:1 SITTER AT BEDSIDE. SAFETY PRECAUTIONS IN PLACE. WILL CONTINUE TO MONITOR.
--- NOTE | 2020-09-26 14:30 | NUR ---
PATIENT PULLED IV ON RIGHT HAND. PRESSURE APPLIED TO AREA. NO S/S OF EXCESSIVE BLEEDING. IV RESTARTED ON RIGHT FOREARM 22G - FLUSHED AND PATENT. 1:1 SITTER AT BEDSIDE. NOTIFIED TO KEEP A CLOSE EYE ON PATIENT. SAFETY PRECAUTIONS IN PLACE. WILL CONTINUE TO MONITOR.
[2020-09-26 15:40] LABS: *BILIRUBIN,URIN NEGATIVE (NEGATIVE); *BLOOD, URINE NEGATIVE (NEGATIVE); *CLARITY,URINE CLEAR (CLEAR); *COLOR,URINE YELLOW (YELLOW); *KETONES,URINE NEGATIVE (NEGATIVE); *UROBILINOGEN,URINE 0.2 E.U./dl (NORMAL); LEUKOCYTE ESTERASE ,URINE NEGATIVE (NEGATIVE); NITRITE, URINE NEGATIVE (NEGATIVE); PH,URINE 5.5 (5.0-8.0); UGLUCOSE NEGATIVE (NEGATIVE)
[2020-09-26 15:43] LABS: *CREATININE,URINE 97.2 mg/dL (30-125); *URINE TOTAL PROTEIN RANDOM 8.6 mg/dL (<150/24HR)
[2020-09-26 16:52] LABS: LYMPHOCYTES % (MANUAL) 32 % (20-40); MONOCYTES % (MANUAL) 7 % (2-10); NEUTROPHILS % (MANUAL) 50 % (42-75)
[2020-09-26 16:53] LABS: EOSINOPHILS % (MANUAL) 11 % (0-8)
[2020-09-26 16:59] VITALS: BP 129/60
[2020-09-26 20:28] VITALS: BP 137/57
[2020-09-26] MEDS: LATANOPROST OPHT DROP 2.5 ML BOTTLE EACHEYE SCH (20:39)
[2020-09-26] MEDS: MIRTAZAPINE 15 MG TABLET PO SCH (20:39)
[2020-09-26] MEDS: ATORVASTATIN 10 MG TABLET PO SCH (20:40)
[2020-09-26] MEDS ORDERED: ENOXAPARIN SODIUM 30 MG/0.3 ML DISP.SYRIN SUBCUT SCH (21:00)
[2020-09-27 00:45] VITALS: BP 128/53
[2020-09-27 04:22] VITALS: BP 137/57
--- NOTE | 2020-09-27 05:22 | NUR ---
PATIENT ASLEEP IN BED. SITTER AT BEDSIDE. SLEPT WELL THROUGHOUT THE NIGHT. ON TELE SR/SB. BED ALARM ON. CALL LIGHT IN REACH. ALL NEEDS ATTENDED. WILL CONTINUE TO MONITOR AND ASSESS.
[2020-09-27] MEDS: PANTOPRAZOLE SODIUM 40 MG TABLET.DR PO SCH (06:10)
[2020-09-27 07:09] LABS: BASOPHILS # (AUTO) 0.1 K/uL (0.0-8.0); BASOPHILS % (AUTO) 0.8 % (0.0-2.0); EOSINOPHILS # (AUTO) 0.4 K/uL (0.0-0.7); EOSINOPHILS % (AUTO) 6.6 % (0.0-7.0); HEMATOCRIT 37.4 % (31.2-41.9); HEMOGLOBIN 12.4 g/dL (10.9-14.3); LYMPHOCYTES # (AUTO) 2.4 K/uL (20.0-40.0); LYMPHOCYTES % (AUTO) 37.1 % (20.5-51.5); MEAN CORPUSCULAR HEMOGLOBIN 31.6 uug (24.7-32.8); MEAN CORPUSCULAR HGB CONC 33 g/dL (32.3-35.6); MEAN CORPUSCULAR VOLUME 95.4 fL (75.5-95.3); MONOCYTES # (AUTO) 0.8 K/uL (2.0-10.0); NEUTROPHILS # (AUTO) 2.8 K/uL (1.8-8.9); NEUTROPHILS % (AUTO) 42.5 % (38.5-71.5); PLATELET COUNT (AUTO) 178 K/uL (179-408); RED BLOOD CELL COUNT(AUTO) 3.92 MIL/uL (3.63-4.92); WHITE BLOOD COUNT (AUTO) 6.5 K/uL (3.8-11.8)
[2020-09-27 07:10] LABS: CREATININE 1.1 mg/dL (0.6-1.3); MAGNESIUM 2.3 mg/dL (1.8-2.4); PHOSPHOROUS 3.9 mg/dL (2.5-4.9)
[2020-09-27] MEDS: risperiDONE 0.5 MG TABLET PO SCH (08:18)
[2020-09-27] MEDS: QUETIAPINE FUMARATE 25 MG TABLET PO SCH (08:18)
[2020-09-27] MEDS: RIVASTIGMINE TARTRATE 1.5 MG CAPSULE PO SCH (08:18)
[2020-09-27] MEDS: DIVALPROEX 250 MG TABLET.DR PO SCH (08:18)
[2020-09-27 08:22] VITALS: BP 107/50
[2020-09-27] MEDS: AMLODIPINE 5 MG TABLET PO SCH (08:22)
[2020-09-27] MEDS: LOSARTAN POTASSIUM 50 MG TABLET PO SCH (08:22)
[2020-09-27] MEDS: MULTIVITAMINS,THERAPEUTIC TABLET PO SCH (08:25)
[2020-09-27] MEDS ORDERED: AMLO-212 PO (11:10)
--- NOTE | 2020-09-27 12:12 | NUR ---
PATIENT SCHEDULED TO BE DISCHARGE TO GEROPSYCH. NO ROOM AVAILABLE IN GEROPSYCH UNIT. PATIENT WILL REMAIN IN THE SAME ROOM A GEROPSYCH OVERFLOW PATIENT. VSS. 1:1 SITTER AT BEDSIDE FOR SAFETY. WILL CONTINUE TO MONITOR.
[2020-09-29 08:06] LABS: ALBUMIN 3.2 g/dL (2.9-4.4); ALPHA-1-GLOBULIN 0.3 g/dL (0.0-0.4); ALPHA-2-GLOBULIN 0.8 g/dL (0.4-1.0); BETA GLOBULIN 0.9 g/dL (0.7-1.3); GAMMA GLOBULIN 1.1 g/dL (0.4-1.8); GLOBULIN, TOTAL 3.1 g/dL (2.2-3.9); M-SPIKE Not Observed g/dL (Not Observed)
== END 2020-09-27 13:10 | DRG 308 ==
LOC: ER 18:08 → GPS 21:12 → TELE3 21:54
PROVIDERS: ADMIT Nurse Practitioner Family; ATTEND Nurse Practitioner Family
DX: R00.1 Bradycardia, unspecified (principal); N17.0 Acute kidney failure with tubular necrosis; F03.91 Unspecified dementia, unspecified severity, with behavioral disturbance; Z79.82 Long term (current) use of aspirin; I10 Essential (primary) hypertension; H40.9 Unspecified glaucoma; F39 Unspecified mood [affective] disorder; E78.5 Hyperlipidemia, unspecified; Z79.899 Other long term (current) drug therapy; Z73.6 Limitation of activities due to disability; R79.89 Other specified abnormal findings of blood chemistry; F29 Unspecified psychosis not due to a substance or known physiological condition; T44.7X5A Adverse effect of beta-adrenoreceptor antagonists, initial encounter; Y92.89 Other specified places as the place of occurrence of the external cause; Z20.822 Contact with and (suspected) exposure to COVID-19
CPT/HCPCS: 36415; 70030-TC; 83735; 83970; 84100; 84155; 84156; 84165; 84300; 84443; 85025; 93005; 93307; A4663; G0378; J1650; J3490; J3590

== ENCOUNTER 2020-09-27 13:19 | Inpatient (IN) | payer MEDICARE, BC ==
[~2020-09-27] VITALS: Ht 152.4 cm; Wt 51.7 kg
[~2020-09-27 13:19] MED LIST changes: +AMLO-212 PO; -ASPI81TA31 PO; +DONE10TA44 PO; +ESCI10TA PO; +MIRT15TA7 PO; +QUET25TA PO; -TIMO1DRO OP; -VIT1CAPS9 PO; -VITA-85A
[2020-09-27] MEDS ORDERED: BLOOD SUGAR DIAGNOSTIC 1 EACH STRIP VI ONE (13:45)
[2020-09-27] MEDS ORDERED: TEMAZEPAM 7.5 MG CAPSULE PO PRN (13:45)
[2020-09-27] MEDS ORDERED: MAG HYDROX/AL HYDROX/SIMETH 30 ML LIQUID UDC PO PRN (13:45)
[2020-09-27] MEDS ORDERED: MAGNESIUM HYDROXIDE 30 ML LIQUID UDC PO PRN (13:45)
[2020-09-27] MEDS ORDERED: ACETAMINOPHEN 325 MG TABLET PO PRN (13:45)
[2020-09-27] MEDS ORDERED: LORAZEPAM 0.5 MG TABLET PO PRN (13:45)
[2020-09-27 16:00] VITALS: BP 108/54
[2020-09-27] MEDS: AMLODIPINE 5 MG TABLET PO SCH (17:00)
[2020-09-27] MEDS: ATORVASTATIN 10 MG TABLET PO SCH (17:29)
[2020-09-27] MEDS ORDERED: BIMATOPROST 0.01% OPHT DROP 2.5 ML BOTTLE EACHEYE SCH (18:00)
[2020-09-27] MEDS: LATANOPROST OPHT DROP 2.5 ML BOTTLE EACHEYE SCH (20:19)
[2020-09-27] MEDS ORDERED: OLANZAPINE 10 MG VIAL IM ONE (22:45)
[2020-09-28 07:30] VITALS: BP 109/68
[2020-09-28] MEDS: AMLODIPINE 5 MG TABLET PO SCH ×2 (08:00→17:04)
[2020-09-28] MEDS: DONEPEZIL 10 MG TABLET PO SCH ×2 (08:03→09:00)
[2020-09-28] MEDS ORDERED: ESCITALOPRAM OXALATE 10 MG TABLET PO SCH (09:00)
[2020-09-28] MEDS: LOSARTAN POTASSIUM 50 MG TABLET PO SCH (10:40)
[2020-09-28 16:00] VITALS: BP 141/75
[2020-09-28] MEDS: ATORVASTATIN 10 MG TABLET PO SCH (17:05)
[2020-09-28] MEDS: LATANOPROST OPHT DROP 2.5 ML BOTTLE EACHEYE SCH (20:22)
[2020-09-29 05:46] VITALS: BP 128/78
[2020-09-29 08:00] VITALS: BP 112/68
[2020-09-29] MEDS: RIVASTIGMINE TARTRATE 1.5 MG CAPSULE PO SCH ×2 (08:56→20:45)
[2020-09-29] MEDS: risperiDONE 0.5 MG TABLET PO SCH ×2 (08:56→20:45)
[2020-09-29] MEDS: MULTIVITAMINS,THERAPEUTIC TABLET PO SCH (08:56)
[2020-09-29] MEDS: DIVALPROEX 250 MG TABLET.DR PO SCH ×2 (08:57→20:45)
[2020-09-29] MEDS: AMLODIPINE 5 MG TABLET PO SCH ×2 (08:57→17:36)
[2020-09-29] MEDS: LOSARTAN POTASSIUM 50 MG TABLET PO SCH (08:57)
[2020-09-29] MEDS ORDERED: Medication Not On Formulary EA (Losartan Potassium 1 TAB) PO SCH (09:00)
[2020-09-29] MEDS ORDERED: Medication Not On Formulary EA (Multivitamins (Multivitamin) 1 TAB) PO SCH (09:00)
[2020-09-29 14:30] VITALS: BP 143/74
[2020-09-29] MEDS: ATORVASTATIN 10 MG TABLET PO SCH (17:36)
[2020-09-29 20:30] VITALS: BP 119/59
[2020-09-29] MEDS: LATANOPROST OPHT DROP 2.5 ML BOTTLE EACHEYE SCH (20:46)
[2020-09-30 07:05] LABS: BASOPHILS # (AUTO) 0.1 K/uL (0.0-8.0); EOSINOPHILS # (AUTO) 0.3 K/uL (0.0-0.7); EOSINOPHILS % (AUTO) 5.6 % (0.0-7.0); HEMATOCRIT 33.9 % (31.2-41.9); HEMOGLOBIN 11.5 g/dL (10.9-14.3); LYMPHOCYTES # (AUTO) 1.6 K/uL (20.0-40.0); LYMPHOCYTES % (AUTO) 27.4 % (20.5-51.5); MEAN CORPUSCULAR HEMOGLOBIN 32.4 uug (24.7-32.8); MEAN CORPUSCULAR HGB CONC 34 g/dL (32.3-35.6); MEAN CORPUSCULAR VOLUME 95.3 fL (75.5-95.3); MONOCYTES # (AUTO) 0.8 K/uL (2.0-10.0); MONOCYTES % (AUTO) 13.2 % (0.0-11.0); NEUTROPHILS # (AUTO) 3.1 K/uL (1.8-8.9); NEUTROPHILS % (AUTO) 51.8 % (38.5-71.5); PLATELET COUNT (AUTO) 178 K/uL (179-408); RED BLOOD CELL COUNT(AUTO) 3.56 MIL/uL (3.63-4.92); WHITE BLOOD COUNT (AUTO) 5.9 K/uL (3.8-11.8)
[2020-09-30 07:26] LABS: BILIRUBIN,TOTAL 0.4 mg/dL (0.2-1.0); CREATININE 1.3 mg/dL (0.6-1.3); MAGNESIUM 2.2 mg/dL (1.8-2.4); PHOSPHOROUS 3.7 mg/dL (2.5-4.9); POTASSIUM 4.4 mmol/L (3.5-5.1)
[2020-09-30 07:30] VITALS: BP 92/49
[2020-09-30 07:38] LABS: THYROID STIMULATING HORMONE 1.364 mIU/mL (0.358-3.740)
[2020-09-30] MEDS: DIVALPROEX 250 MG TABLET.DR PO SCH ×2 (08:31→20:58)
[2020-09-30] MEDS: RIVASTIGMINE TARTRATE 1.5 MG CAPSULE PO SCH ×2 (08:31→20:47)
[2020-09-30] MEDS: risperiDONE 0.5 MG TABLET PO SCH ×2 (08:31→20:59)
[2020-09-30] MEDS: MULTIVITAMINS,THERAPEUTIC TABLET PO SCH (08:31)
[2020-09-30] MEDS: LOSARTAN POTASSIUM 50 MG TABLET PO SCH (08:32)
[2020-09-30] MEDS: AMLODIPINE 5 MG TABLET PO SCH ×2 (08:32→16:52)
[2020-09-30 15:14] LABS: EOSINOPHILS % (MANUAL) 5 % (0-8); LYMPHOCYTES % (MANUAL) 30 % (20-40); MONOCYTES % (MANUAL) 15 % (2-10); NEUTROPHILS % (MANUAL) 50 % (42-75)
[2020-09-30 16:00] VITALS: BP 101/60
[2020-09-30] MEDS: ATORVASTATIN 10 MG TABLET PO SCH (18:15)
[2020-09-30 20:16] VITALS: BP 122/72
[2020-09-30] MEDS: LATANOPROST OPHT DROP 2.5 ML BOTTLE EACHEYE SCH (20:47)
[2020-10-01 07:30] VITALS: BP 145/72
[2020-10-01] MEDS: LOSARTAN POTASSIUM 50 MG TABLET PO SCH (08:46)
[2020-10-01] MEDS: risperiDONE 0.5 MG TABLET PO SCH ×2 (08:46→20:06)
[2020-10-01] MEDS: RIVASTIGMINE TARTRATE 1.5 MG CAPSULE PO SCH ×2 (08:46→20:05)
[2020-10-01] MEDS: AMLODIPINE 5 MG TABLET PO SCH ×2 (08:46→16:26)
[2020-10-01] MEDS: DIVALPROEX 250 MG TABLET.DR PO SCH ×2 (08:46→20:06)
[2020-10-01] MEDS: MULTIVITAMINS,THERAPEUTIC TABLET PO SCH (08:46)
[2020-10-01 10:00] LABS: *BILIRUBIN,URIN NEGATIVE (NEGATIVE); *BLOOD, URINE NEGATIVE (NEGATIVE); *CLARITY,URINE CLEAR (CLEAR); *COLOR,URINE YELLOW (YELLOW); *KETONES,URINE NEGATIVE (NEGATIVE); *UROBILINOGEN,URINE 0.2 E.U./dl (NORMAL); LEUKOCYTE ESTERASE ,URINE TRACE (NEGATIVE); NITRITE, URINE NEGATIVE (NEGATIVE); UGLUCOSE NEGATIVE (NEGATIVE)
[2020-10-01 12:16] LABS: BACTERIA,URINE NONE SEEN /HPF (NONE SEEN); RBC,URINE 0-3 /HPF (0-3); SQUAMOUS EPITHELIAL CELL,UR FEW /HPF (NONE SEEN); WBC,URINE 0-3 /HPF (0-3)
[2020-10-01] MEDS: CEphaleXIN 500 MG CAPSULE PO SCH (16:25)
[2020-10-01 16:51] VITALS: BP 133/63
[2020-10-01] MEDS: ATORVASTATIN 10 MG TABLET PO SCH (17:05)
[2020-10-01 20:00] VITALS: BP 131/56
[2020-10-01] MEDS: LATANOPROST OPHT DROP 2.5 ML BOTTLE EACHEYE SCH (20:05)
[2020-10-02 07:30] VITALS: BP 137/74
[2020-10-02] MEDS: LOSARTAN POTASSIUM 50 MG TABLET PO SCH (10:03)
[2020-10-02] MEDS: DIVALPROEX 250 MG TABLET.DR PO SCH ×2 (10:03→20:37)
[2020-10-02] MEDS: CEphaleXIN 500 MG CAPSULE PO SCH ×2 (10:03→18:13)
[2020-10-02] MEDS: AMLODIPINE 5 MG TABLET PO SCH ×2 (10:04→17:00)
[2020-10-02] MEDS: MULTIVITAMINS,THERAPEUTIC TABLET PO SCH (10:04)
[2020-10-02] MEDS: risperiDONE 0.5 MG TABLET PO SCH ×2 (10:06→20:37)
[2020-10-02] MEDS: RIVASTIGMINE TARTRATE 1.5 MG CAPSULE PO SCH ×2 (10:06→20:37)
[2020-10-02 15:29] VITALS: BP 105/50
[2020-10-02 17:01] LABS: *BILIRUBIN,URIN NEGATIVE (NEGATIVE); *BLOOD, URINE NEGATIVE (NEGATIVE); *CLARITY,URINE CLEAR (CLEAR); *COLOR,URINE YELLOW (YELLOW); *KETONES,URINE NEGATIVE (NEGATIVE); *UROBILINOGEN,URINE 0.2 E.U./dl (NORMAL); LEUKOCYTE ESTERASE ,URINE NEGATIVE (NEGATIVE); NITRITE, URINE NEGATIVE (NEGATIVE); PH,URINE 5.5 (5.0-8.0); UGLUCOSE NEGATIVE (NEGATIVE)
[2020-10-02] MEDS: ENSURE ENLIVE (VAN) 240 ML LIQUID PO SCH (18:19)
[2020-10-02] MEDS: ATORVASTATIN 10 MG TABLET PO SCH (18:19)
[2020-10-02] MEDS: LATANOPROST OPHT DROP 2.5 ML BOTTLE EACHEYE SCH (20:37)
[2020-10-02 21:00] VITALS: BP 105/49
[2020-10-03 07:30] VITALS: BP 96/53
[2020-10-03] MEDS: ENSURE ENLIVE (VAN) 240 ML LIQUID PO SCH ×2 (08:00→16:17)
[2020-10-03] MEDS: RIVASTIGMINE TARTRATE 1.5 MG CAPSULE PO SCH ×2 (08:26→20:21)
[2020-10-03] MEDS: CEphaleXIN 500 MG CAPSULE PO SCH (08:26)
[2020-10-03] MEDS: MULTIVITAMINS,THERAPEUTIC TABLET PO SCH (08:27)
[2020-10-03] MEDS: DIVALPROEX 250 MG TABLET.DR PO SCH ×2 (08:27→20:21)
[2020-10-03] MEDS: risperiDONE 0.5 MG TABLET PO SCH ×2 (08:27→20:20)
[2020-10-03] MEDS: LOSARTAN POTASSIUM 50 MG TABLET PO SCH (09:00)
[2020-10-03] MEDS: AMLODIPINE 5 MG TABLET PO SCH ×2 (09:00→16:51)
[2020-10-03 16:00] VITALS: BP 138/75
[2020-10-03] MEDS: ATORVASTATIN 10 MG TABLET PO SCH (17:04)
[2020-10-03 20:00] VITALS: BP 129/64
[2020-10-03] MEDS: LATANOPROST OPHT DROP 2.5 ML BOTTLE EACHEYE SCH (20:22)
[2020-10-04 07:30] VITALS: BP 124/70
[2020-10-04] MEDS: RIVASTIGMINE TARTRATE 1.5 MG CAPSULE PO SCH ×2 (08:56→20:07)
[2020-10-04] MEDS: DIVALPROEX 250 MG TABLET.DR PO SCH ×2 (08:56→20:07)
[2020-10-04] MEDS: risperiDONE 0.5 MG TABLET PO SCH ×2 (08:56→20:07)
[2020-10-04] MEDS: MULTIVITAMINS,THERAPEUTIC TABLET PO SCH (08:57)
[2020-10-04] MEDS: AMLODIPINE 5 MG TABLET PO SCH ×2 (08:57→17:07)
[2020-10-04] MEDS: LOSARTAN POTASSIUM 50 MG TABLET PO SCH (08:58)
[2020-10-04] MEDS: ENSURE ENLIVE (VAN) 240 ML LIQUID PO SCH ×2 (08:58→17:07)
[2020-10-04 16:00] VITALS: BP 133/58
[2020-10-04] MEDS: ATORVASTATIN 10 MG TABLET PO SCH (17:06)
[2020-10-04] MEDS: LATANOPROST OPHT DROP 2.5 ML BOTTLE EACHEYE SCH (20:09)
[2020-10-04 20:21] VITALS: BP 128/64
[2020-10-05 07:30] VITALS: BP 131/56
[2020-10-05] MEDS: AMLODIPINE 5 MG TABLET PO SCH ×2 (08:03→16:30)
[2020-10-05] MEDS: RIVASTIGMINE TARTRATE 1.5 MG CAPSULE PO SCH ×2 (08:03→21:29)
[2020-10-05] MEDS: LOSARTAN POTASSIUM 50 MG TABLET PO SCH (08:03)
[2020-10-05] MEDS: risperiDONE 0.5 MG TABLET PO SCH ×2 (08:03→21:29)
[2020-10-05] MEDS: MULTIVITAMINS,THERAPEUTIC TABLET PO SCH (08:03)
[2020-10-05] MEDS: DIVALPROEX 250 MG TABLET.DR PO SCH ×2 (08:03→21:29)
[2020-10-05] MEDS: ENSURE ENLIVE (VAN) 240 ML LIQUID PO SCH ×2 (08:42→17:31)
[2020-10-05 15:11] VITALS: BP 96/47
[2020-10-05] MEDS: ATORVASTATIN 10 MG TABLET PO SCH (17:23)
[2020-10-05 20:00] VITALS: BP 122/59
[2020-10-05] MEDS: LATANOPROST OPHT DROP 2.5 ML BOTTLE EACHEYE SCH (21:44)
[2020-10-06 07:30] VITALS: BP 98/50
[2020-10-06] MEDS: ENSURE ENLIVE (VAN) 240 ML LIQUID PO SCH ×2 (08:51→17:30)
[2020-10-06] MEDS: MULTIVITAMINS,THERAPEUTIC TABLET PO SCH (08:55)
[2020-10-06] MEDS: risperiDONE 0.5 MG TABLET PO SCH ×2 (08:55→21:13)
[2020-10-06] MEDS: AMLODIPINE 5 MG TABLET PO SCH ×2 (08:56→17:30)
[2020-10-06] MEDS: RIVASTIGMINE TARTRATE 1.5 MG CAPSULE PO SCH ×2 (08:56→21:13)
[2020-10-06] MEDS: DIVALPROEX 250 MG TABLET.DR PO SCH ×2 (08:56→21:13)
[2020-10-06] MEDS: LOSARTAN POTASSIUM 50 MG TABLET PO SCH (08:58)
[2020-10-06 15:27] VITALS: BP 108/66
[2020-10-06] MEDS: ATORVASTATIN 10 MG TABLET PO SCH (17:29)
[2020-10-06 20:40] VITALS: BP 129/50
[2020-10-06] MEDS: LATANOPROST OPHT DROP 2.5 ML BOTTLE EACHEYE SCH (21:14)
[2020-10-07 07:30] VITALS: BP 130/81
[2020-10-07] MEDS: DIVALPROEX 250 MG TABLET.DR PO SCH ×2 (08:04→20:16)
[2020-10-07] MEDS: MULTIVITAMINS,THERAPEUTIC TABLET PO SCH (08:04)
[2020-10-07] MEDS: RIVASTIGMINE TARTRATE 1.5 MG CAPSULE PO SCH ×2 (08:04→20:16)
[2020-10-07] MEDS: AMLODIPINE 5 MG TABLET PO SCH ×2 (08:04→17:40)
[2020-10-07] MEDS: risperiDONE 0.5 MG TABLET PO SCH ×2 (08:05→20:16)
[2020-10-07] MEDS: ENSURE ENLIVE (VAN) 240 ML LIQUID PO SCH ×2 (08:05→17:40)
[2020-10-07] MEDS: LOSARTAN POTASSIUM 50 MG TABLET PO SCH (08:05)
[2020-10-07 08:06] LABS: BASOPHILS % (AUTO) 0.9 % (0.0-2.0); EOSINOPHILS # (AUTO) 0.4 K/uL (0.0-0.7); EOSINOPHILS % (AUTO) 6.8 % (0.0-7.0); HEMATOCRIT 33.4 % (31.2-41.9); HEMOGLOBIN 11.2 g/dL (10.9-14.3); LYMPHOCYTES # (AUTO) 1.9 K/uL (20.0-40.0); LYMPHOCYTES % (AUTO) 33.4 % (20.5-51.5); MEAN CORPUSCULAR HEMOGLOBIN 32.2 uug (24.7-32.8); MEAN CORPUSCULAR HGB CONC 34 g/dL (32.3-35.6); MEAN CORPUSCULAR VOLUME 95.9 fL (75.5-95.3); MONOCYTES # (AUTO) 1.1 K/uL (2.0-10.0); MONOCYTES % (AUTO) 18.5 % (0.0-11.0); NEUTROPHILS # (AUTO) 2.3 K/uL (1.8-8.9); NEUTROPHILS % (AUTO) 40.4 % (38.5-71.5); PLATELET COUNT (AUTO) 180 K/uL (179-408); RED BLOOD CELL COUNT(AUTO) 3.48 MIL/uL (3.63-4.92); WHITE BLOOD COUNT (AUTO) 5.7 K/uL (3.8-11.8)
[2020-10-07 08:15] LABS: MAGNESIUM 2.2 mg/dL (1.8-2.4); PHOSPHOROUS 3.7 mg/dL (2.5-4.9); POTASSIUM 3.9 mmol/L (3.5-5.1)
[2020-10-07 14:48] LABS: EOSINOPHILS % (MANUAL) 7 % (0-8); LYMPHOCYTES % (MANUAL) 36 % (20-40); MONOCYTES % (MANUAL) 12 % (2-10); NEUTROPHILS % (MANUAL) 45 % (42-75)
[2020-10-07 16:00] VITALS: BP 129/78
[2020-10-07] MEDS: ATORVASTATIN 10 MG TABLET PO SCH (17:40)
[2020-10-07] MEDS: LATANOPROST OPHT DROP 2.5 ML BOTTLE EACHEYE SCH (20:16)
[2020-10-07 20:19] VITALS: BP 124/50
[2020-10-08 07:30] VITALS: BP 105/46
[2020-10-08 09:00] VITALS: BP 105/46
[2020-10-08] MEDS: LOSARTAN POTASSIUM 50 MG TABLET PO SCH (09:00)
[2020-10-08] MEDS: AMLODIPINE 5 MG TABLET PO SCH (09:00)
[2020-10-08] MEDS: ENSURE ENLIVE (VAN) 240 ML LIQUID PO SCH (10:03)
[2020-10-08] MEDS: RIVASTIGMINE TARTRATE 1.5 MG CAPSULE PO SCH (10:03)
[2020-10-08] MEDS: risperiDONE 0.5 MG TABLET PO SCH (10:04)
[2020-10-08] MEDS: DIVALPROEX 250 MG TABLET.DR PO SCH (10:04)
[2020-10-08] MEDS: MULTIVITAMINS,THERAPEUTIC TABLET PO SCH (10:05)
== END 2020-10-08 15:20 | DRG 885 ==
LOC: GPSOV3 13:19 → GPS 09-29 21:36
PROVIDERS: ADMIT Psychiatry & Neurology Psychiatry; ATTEND Nurse Practitioner Family
PROC: 0HBRXZZ Excision of Toe Nail, External Approach (ICD-10-PCS; principal; 2020-10-02)
DX: F39 Unspecified mood [affective] disorder (principal); N17.0 Acute kidney failure with tubular necrosis; E78.5 Hyperlipidemia, unspecified; H40.9 Unspecified glaucoma; F03.90 Unspecified dementia, unspecified severity, without behavioral disturbance, psychotic disturbance, mood disturbance, and anxiety; D64.9 Anemia, unspecified; I10 Essential (primary) hypertension; L60.0 Ingrowing nail; L85.3 Xerosis cutis; M20.41 Other hammer toe(s) (acquired), right foot; M20.42 Other hammer toe(s) (acquired), left foot; Z20.822 Contact with and (suspected) exposure to COVID-19; R00.1 Bradycardia, unspecified; F29 Unspecified psychosis not due to a substance or known physiological condition; Z73.6 Limitation of activities due to disability; L60.3 Nail dystrophy
CPT/HCPCS: 36415; 70030-TC; 80164; 83735; 84100; 84443; 85025; J2358; J3490